=== PATIENT | female | born 1990 | race Hispanic/Latino ===

== ENCOUNTER 2024-11-10 17:28 | Emergency (ER) | payer SELFPAY ==
[2024-11-10 17:37] VITALS: BP 173/102
[2024-11-10 18:00] LABS: Hematocrit 38.0 % (37.0-47.0); Hemoglobin 12.3 g/dL (12.0-16.0); Mean Corp Hgb Conc. 32.4 g/dL (33.0-37.0); Mean Corpuscular Volume 75.7 fL (81.0-99.0); Nucleated Red Blood Cells % 0 %; Platelet Count 325 10^3/uL (130-400); Red Cell Dist. Width 14.7 % (11.5-14.5)
[2024-11-10 18:18] LABS: HCG, Serum Qualitative Screen Negative
[2024-11-10 18:47] LABS: ALT (SGPT) 44 U/L (0-35); AST (SGOT) 43 U/L (14-36); Albumin 4.9 g/dl (3.5-5.0); Alkaline Phosphatase 116 U/L (38-126); Blood Urea Nitrogen 15 mg/dl (7-17); Calcium 9.7 mg/dl (8.4-10.2); Carbon Dioxide 24 mmol/L (22-30); Chloride 106 mmol/L (98-107); Glucose 96 mg/dl (70-99); Potassium 4.7 mmol/L (3.5-5.1); Sodium 138 mmol/L (135-145); Total Protein 8.7 g/dl (6.3-8.2); eGFR > 60.00
[2024-11-10 18:58] LABS: Troponin I < 0.012 ng/ml
[2024-11-10 20:49] VITALS: BP 141/80
[2024-11-10 21:00] VITALS: BP 132/83
--- NOTE | 2024-11-10 21:18 | ED.GENMED ---
History of Present Illness
General
Chief Complaint: Chest Pain
Source: patient
Exam Limitations: none
Time Seen by Provider: 11/10/24 21:14
History of Present Illness
History of Present Illness:
34yoF with no significant past medical history presenting for evaluation of multiple complaints. Patient is [place]ian-speaking and history is obtained with the assistance of a phone hr internship. Patient's first complaint is bilateral foot itching,
rash, and burning pain which has been ongoing for the past 8 to 9 months. She was seen by the [facility] in the past for this and was given a prescription for a cream which helped significantly but she ran out and did not have any further refills.
She started to experience generalized chest pain about 3 days ago while she was in her room. She felt the sensation that she could not breathe. The symptoms have improved but are still present. Additionally, she reports headache and throbbing
bilateral eye pain for the past 2 days which she currently rates as an 8/10 in severity. She has not taken anything [id number] for her symptoms.
Past History
Past History
ED Past Medical History: None
ED Past Surgical History: None
Social History
Tobacco: Non-smoker
Alcohol: None
Living: with family
Employment: Employed (house cleaning)
Phy Exam
General Physical Exam
General Presentation: well appearing and no apparent distress
General age: appears stated age
General Skin: warm and dry
General Habitus: normal
General Mental: alert
ENT Exam
ENT Exam: neck supple and normocephalic
Additional ENT: No meningismus
Cardiovascular Exam
Cardiovascular Exam: regular rate/rhythm, no edema, no murmur and normal peripheral pulses (DP doppler signals present in both feet)
Pulmonary Exam
Pulmonary Exam: lungs clear, no respiratory distress, no rales, no crackles, no rhonchi and no wheezing
Neurological Exam
Neurological Exam: alert
[place] Coma Scale
Eye Opening: Spontaneous
Verbal Response: Oriented
Motor Response: Obeys Commands
GCS Total Score: 15
Skin Exam
Skin Exam: warm/dry and other (Dry patchy areas of skin noted to anterior ankles with hypopigmentation)
Psychiatric Exam
Psychiatric Exam: normal mood/affect
Scores
Heart Score for Chest Pain Patients
STEMI patient?: No
History: Slightly or Non-Suspicious
ECG: Normal
Age: </= 45 years
Risk Factors: No Risk Factors
Troponin: </= Normal Limit
Heart Score for Chest Pain Patients: 0
Heart Score Risk: 2.5% MACE over next 6 weeks
Course
Orders/Labs/Results
Orders:
Orders
11/10/24 17:41
EKG [Electrocardiogram (*1)] Urgent
Reason for Study: Chest Pain
11/10/24 17:42
EKG- Treatment ONCE
Test Result ONCE
11/10/24 17:51
CBC/With Diff [Complete Blood Count/With Diff] Urgent
CMP [Comprehensive Metabolic Panel] Urgent
HCG, Serum Qualitative Screen Urgent
Troponin I Urgent
11/10/24 21:37
Electrocardiogram (*1) Urgent
Reason for Study: Chest Pain
CT Head W/o Iv Contrast Urgent
Comment:
Reason For Exam: acute headache
Cardiac Monitoring- Treatment ONCE
EKG- Treatment ONCE
CR Chest - 2 Views Urgent
Comment:
Reason For Exam: CP
11/10/24 21:44
Ketorolac [Toradol] 15 mg IV NOW STA
11/10/24 22:01
D-Dimer Urgent
Troponin I Urgent
Abnormal Lab Results
11/10/24
17:51
MCV 75.7 L fL
(81.0-99.0)
MCH 24.5 L pg
(27.0-31.0)
MCHC 32.4 L g/dL
(33.0-37.0)
RDW 14.7 H %
(11.5-14.5)
Abs Immat Gran (auto) 0.1 H 10^3/uL
(0-0.05)
Immature Gran % 0.9 H %
(0-0.5)
Creatinine 0.5 L mg/dL
(0.6-1.0)
AST 43 H U/L
(14-36)
ALT 44 H U/L
(0-35)
Total Protein 8.7 H g/dl
(6.3-8.2)
11/10/24 17:51
11/10/24 17:51
Vital Signs
Initial and Last Documented VS:
Initial Vital Signs
Temp Pulse Resp BP Pulse Ox
98.2 F 117 12 173/102 99
11/10/24 17:37 11/10/24 17:37 11/10/24 17:37 11/10/24 17:37 11/10/24 17:37
Last Documented Vital Signs
Temp Pulse Resp BP Pulse Ox
98.2 F 90 20 122/74 99
11/10/24 17:37 11/10/24 23:28 11/10/24 23:28 11/10/24 23:28 11/10/24 23:28
MDM/Problems Addressed
Differential Diagnosis Includes:
34yoF here with multiple complaints including bilateral ankle rash/itching x 8-9 months and chest pain and headache x 3 days. HR 117 in triage and BP elevated. She is well appearing in no distress. Dry patchy rash noted to anterior ankles that
appears consistent with eczema. Differential diagnosis includes: musculoskeletal chest pain, pneumonia, pericarditis, PE, less likely ACS
Initial ED plan: Workup initiated in triage. EKG shows NSR without ischemic changes and troponin WNL. Will check delta troponin/EKG, D-dimer, CXR, and CT head. IV Toradol for pain.
*Pulse Oximetry
SaO2: 99
Oxygen Mode of Delivery: Room air
Patient hypoxic: no (99%)
*EKG
Interpreted by ED Provider?: Yes
EKG Intrepretation Date: 11/10/24
Heart Rate: 111
Rate: tachycardiac
Rhythm: sinus
[place]: normal axis
Interval: normal interval
QRS Pattern: normal QRS
Ischemia: non-specific ST changes
*Critical Care Note
Total Time (30-74mins, 75-104mins- exclusive of procedures): Not Applicable
Update Note
Update Note:
D-dimer normal making PE very unlikely. Repeat EKG and troponin unchanged. CT head negative for acute findings. CXR appears normal per my interpretation. Headache resolved on reassessment after receiving Toradol and BP improved. She is stable for
discharge. She was advised to use Eucerin cream on her rash given suspected eczema. [facility]. She was discharged in stable condition.
ED Attending Note
-
Portions of this chart may have been created with voice recognition software.� Occasional wrong word or��sound alike� substitutions may have occurred due to the inherent limitations of voice recognition software.
Discharge Plan
Departure
Patient Disposition: Home (Routine Discharge)
Date of Disposition: 11/10/24
Time of Disposition: 23:13
Patient with high blood pressure during this ER visit?: No
Discharge Problem:
Chest pain, Acute nonintractable headache, Rash and nonspecific skin eruption
Instructions: Chest Pain PCP Follow Up
Prescriptions:
No Action
acetaminophen 325 MG tablet
650 mg PO Q6HPRN PRN (Reason: mild pain/ fever>100.5F) 0RF
benzonatate 100 MG capsule
200 mg PO TIDPRN PRN (Reason: cough) Qty: 15 0RF
amoxicillin-pot clavulanate 1 TABLET tablet
1 tab PO Q12 Qty: 14 0RF
Referrals:
[facility] [Outside]
UNKNOWN - PT DOES,NOT KNOW [Unknown Provider]
Activity Restrictions/Additional Instructions:
Apply Eucerin cream to your rash.
Please [facility] with the [facility]. Return to the ER with any worsening symptoms.
Interventions
Interventions:
*Risk Screen - Suicide Last Done: 11/10/24 17:37
*General Assessment Last Done: 11/10/24 17:37
*Neglect/Abuse Screening Last Done: 11/10/24 17:37
*ED- Fall Risk Assessment Last Done: 11/10/24 23:28
*ED COVID-19 Vaccine History Last Done: 11/10/24 17:37
*Nursing Disposition Last Done: 11/10/24 23:28
ED- Cardiac Assessment Last Done: 11/10/24 20:58
Discharge Date and Time
Discharge Date/Time: 11/10/24 23:37
Print Language: ITALIAN
[2024-11-10] MEDS: TORADOL 15 MG IV (21:59)
[2024-11-10 22:00] VITALS: BP 125/73
[2024-11-10 22:34] LABS: Troponin I < 0.012 ng/ml
[2024-11-10 22:36] LABS: D-Dimer < 0.27 ug/mlFEU (0.00-0.50)
[2024-11-10 23:28] VITALS: BP 122/74
== END 2024-11-10 23:37 | disposition home or self-care (01) ==
LOC: EMR 17:28
PROVIDERS: Physician Assistant; Student in an Organized Health Care Education/Training Program; EMERGENCY PHYSICIAN Emergency Medicine
DX: R07.89 Other chest pain (principal); R51.9 Headache, unspecified; R21 Rash and other nonspecific skin eruption
CPT/HCPCS: 99284; 96374; 70450; 71046; 80053; 84484; 84703; 85025; 85379; 93005